=== PATIENT | male | born 1960 | race Caucasian/White ===

== ENCOUNTER 2016-10-25 18:07 | Emergency (ER) | payer OTHER ==
[~2016-10-25] VITALS: Ht 182.9 cm; Wt 60.9 kg
[~2016-10-25 18:07] MED LIST: CELEXA20 MG PO; FLOMAX0.4 MG PO; MOTRIN800 MG PO; VICODIN,LORT1 TABLET PO; ZOFRAN4 MG PO
[2016-10-25] MEDS ORDERED: VALTREX1000 MG PO (18:57)
[2016-10-25] MEDS ORDERED: LIDODERM 5% P1 PATCH TD (18:59)
[2016-10-25 19:15] VITALS: BP 152/76
== END 2016-10-25 19:16 | disposition home or self-care (01) ==
LOC: EME 18:07
DX: B02.9 Zoster without complications (principal)
CPT/HCPCS: 99281; 99283